=== PATIENT | male | born 1995 | race African-American/Black ===

== ENCOUNTER 2020-12-17 10:00 | Emergency (ER) | payer OTHER ==
[2020-12-17 10:18] VITALS: BP 112/69; PULSE 90; TEMP 99; BMI 25.3
[2020-12-17] MEDS ORDERED: METOCLOPRAMIDE HCL INJECTION 10 MG/2 ML VIAL IVPB ONE (11:40)
[2020-12-17] MEDS ORDERED: KETOROLAC TROMETHAMINE 30 MG/1 ML VIAL IVPUSH STA (11:40)
[2020-12-17] MEDS ORDERED: SODIUM CHLORIDE 1,000 ML IV STA (11:40)
[2020-12-17] MEDS ORDERED: METOCLOPRAMIDE HCL INJECTION 10 MG/2 ML VIAL ONE (11:46)
[2020-12-17] MEDS ORDERED: KETOROLAC TROMETHAMINE 30 MG/1 ML VIAL ONE (11:47)
[2020-12-17 12:36] LABS: BASO % 0.3 % (0-2.0); EOS % 0.2 % (0-4.5); HEMATOCRIT 48.9 % (35.4-49); HEMOGLOBIN 16.7 GM/dL (11.7-16.9); MCH 30.8 pg (25.7-33.7); MCHC 34.1 g/dl (32.0-35.9); MEAN CELL VOLUME 90.3 fl (80-96); MEAN PLT VOLUME 8.7 fl (7.5-11.1); MONO % 5.7 % (3.8-10.2); NEUT % 84.8 % (42.8-82.8); PLATELET COUNT 133 K/MM3 (134-434); RBC 5.42 M/mm3 (4.00-5.60); RDW 13.1 % (11.9-15.9); WHITE BLOOD COUNT 7.3 K/mm3 (4.0-10.0)
[2020-12-17 13:05] LABS: BLOOD UREA NITROGEN 12.4 mg/dL (7-18); CALCIUM 9.5 mg/dL (8.5-10.1); MAGNESIUM 2.1 mg/dL (1.8-2.4)
[2020-12-17 13:06] LABS: ALBUMIN 4.4 g/dl (3.4-5.0)
[2020-12-17 13:10] LABS: BILIRUBIN,TOTAL 0.8 mg/dL (0.2-1); TOT PROT 7.8 g/dl (6.4-8.2)
[2020-12-17 13:22] LABS: PLATELET ESTIMATE DECREASED
[2020-12-17 13:43] LABS: PH,URINE 8.5 (5.0-8.0); URINE APPEARANCE CLEAR; URINE BILIRUBIN NEGATIVE (NEGATIVE); URINE COLOR YELLOW; URINE GLUCOSE (UA) NEGATIVE (NEGATIVE); URINE KETONE NEGATIVE (NEGATIVE); URINE LEUK ESTERASE NEGATIVE (NEGATIVE); URINE NITRITE NEGATIVE (NEGATIVE); URINE PROTEIN NEGATIVE (NEGATIVE); URINE UROBILINOGEN 0.2 mg/dL (0.2-1.0)
[2020-12-18 05:08] LABS: SARS-CoV-2 NAA Not Detected (Not Detected)
== END 2020-12-17 14:08 | disposition home or self-care (01) ==
LOC: JER 10:00
PROC: 3E0333Z Introduction of Anti-inflammatory into Peripheral Vein, Percutaneous Approach (ICD-10-PCS; principal; 2020-12-17)
PROC: 3E033GC Introduction of Other Therapeutic Substance into Peripheral Vein, Percutaneous Approach (ICD-10-PCS; 2020-12-17)
PROC: 3E0337Z Introduction of Electrolytic and Water Balance Substance into Peripheral Vein, Percutaneous Approach (ICD-10-PCS; 2020-12-17)
DX: R51.9 Headache, unspecified (principal); Z11.52 Encounter for screening for COVID-19
CPT/HCPCS: 36415; 80053; 81003; 83690; 83735; 85025; 99284-25; C9803; U0003; U0005

== ENCOUNTER 2021-08-22 23:11 | Emergency (ER) | payer OTHER ==
[2021-08-22 23:57] VITALS: BP 117/77; PULSE 79; TEMP 97; BMI 25.7
[2021-08-23] MEDS ORDERED: ACETAMINOPHEN 500 MG TABLET (FP) PO ONE (01:16)
[2021-08-23] MEDS ORDERED: LIDOCAINE 5% TOPICAL PATCH TP ONE (01:17)
[2021-08-23] MEDS ORDERED: ACETAMINOPHEN 325 MG TABLET (FP) ONE (02:41)
[2021-08-23] MEDS ORDERED: LIDOCAINE 5% TOPICAL PATCH ONE (02:42)
[2021-08-23] MEDS ORDERED: LIDOCAINE PATCH REMOVAL MC SCH (22:00)
== END 2021-08-23 03:07 | disposition home or self-care (01) ==
LOC: JER 23:11
DX: R51.9 Headache, unspecified (principal); M54.2 Cervicalgia; V49.40XA Driver injured in collision with unspecified motor vehicles in traffic accident, initial encounter; Z11.52 Encounter for screening for COVID-19
CPT/HCPCS: 73030-TC-LT-FY; 73090-TC-LT-FY; 73090-TC-RT-FY; 73110-TC-LT-FY; 73110-TC-RT-FY; 99285-25; C9803; U0003; U0005